=== PATIENT | female | born 1970 | race Caucasian/White ===

== ENCOUNTER → 2016-08-05 | Outpatient (CLI) | payer OTHER ==
--- NOTE | 2016-08-05 16:00 | RAD ---
Right breast ultrasound, 08/05/2016: History: Follow-up nodule A targeted ultrasound exam of the right breast was performed at the 9:00 location where a small nodule was identified on the 02/05/2016 exam. Approximately 5 cm from the nipple again noted is a small hypoechoic nodule. It measures approximately 3 x 4 x 4 mm. It has shown no significant change. No new abnormality is seen in this region. IMPRESSION: Unchanged right breast nodule as described above. Further sonographic surveillance in 6 months at the time of the patient's routine yearly mammography is suggested. BI-RADS 3-probably benign findings
== END | disposition home or self-care (01) ==
LOC: KCIC US 15:35
PROVIDERS: ATTEND Internal Medicine
DX: R92.8 Other abnormal and inconclusive findings on diagnostic imaging of breast (principal)
CPT/HCPCS: 76641

== ENCOUNTER → 2018-02-03 | Outpatient (CLI) | payer OTHER ==
--- NOTE | 2018-02-03 08:43 | KCIC ---
Bilateral digital screening mammograms: Reason for examination: Routine screening. Comparison is made to previous studies dated 01/22/2016 and 02/01/2013. Interpretation was made with the benefit of CAD. The skin and nipples show no abnormalities. No abnormal axillary lymph nodes are seen. The breast parenchyma shows scattered fibroglandular density. (Breast density: Category B.) There continues to be a small 5.4 mm nodular density laterally in the right breast seen best on CC view. There are no new dominant masses, suspicious calcifications or architectural distortions. Impression: No evidence of malignancy. Recommend routine screening. BI-RADS Category 2: Benign. "Our facility is accredited by the [employer] Mammography Program." This patient's information has been entered into a reminder system for the patient to be notified with the results of her examination and a target date for the next mammogram. Electronically signed by: Lucero Gates MD (02/03/2018 8:40 AM) [id number]
== END | disposition home or self-care (01) ==
LOC: KCIC MAMMO 07:54
PROVIDERS: ATTEND Internal Medicine
DX: Z12.31 Encounter for screening mammogram for malignant neoplasm of breast (principal)
CPT/HCPCS: 77067

== ENCOUNTER → 2018-06-30 | Outpatient (CLI) | payer OTHER ==
--- NOTE | 2018-06-30 10:27 | KCIC ---
Indication:Pelvic pain, heavy periods TECHNIQUE: Grayscale, color Doppler and spectral waveform images of the pelvis obtained. COMPARISON: None FINDINGS: The uterus is anteverted and measures 11.0 x 4.9 x 6.1 cm (longitudinal, AP, transverse). Endometrial stripe measures 1.2 cm in thickness without vascularity. Multiple nabothian cysts are seen. Small amount of fluid is seen in the endocervical canal, nonspecific. There is a mixed echogenicity round mass in the anterior aspect of the uterine body measuring 2.6 x 2.6 x 2.6 cm most likely a fibroid. The right ovary measures 2.8 x 3.0 x 1.5 cm and shows evidence of blood flow with a 1.9 x 1.6 x 1.2 cm anechoic lesion most likely dominant follicle. The left ovary measures 4.8 x 2.2 x 4.6 cm and shows evidence of blood flow. There is a 4.3 x 4.2 x 2.5 cm septated lesion in the right ovary with layering low-level echogenic debris. IMPRESSION: 1. Fibroid uterus. 2. Complex left ovarian cystic lesion likely hemorrhagic cyst. Follow-up ultrasound in 8-12 weeks recommended. Electronically signed by: Eddie Anguiano DO (06/30/2018 10:24 AM) [facility]
--- NOTE | 2018-06-30 10:48 | KCIC ---
Indication:Abdominal pain TECHNIQUE: Grayscale, color Doppler and spectral waveform is of the abdomen obtained. COMPARISON:None FINDINGS: Visualized pancreas is within normal limits. Pancreatic tail not visualized due to overlying bowel gas. IVC is within normal limits. Liver measures 14 cm in longest dimension and is normal in size with diffuse increased echogenicity. Main portal vein is patent with hepatopedal flow. CBD measures 4 mm in diameter and is within normal limits. Mid and distal aortic segments are not visualized due to overlying bowel gas. No gallstones, pericholecystic fluid or gallbladder wall thickening. Right kidney measures 11.5 cm in length without hydronephrosis. 5.0 x 3.9 x 4.6 cm simple cyst is seen in the right kidney. Spleen measures 10.3 cm in length and is normal in size. Left kidney measures 13.7 cm in length without hydronephrosis. IMPRESSION: 1. Hepatic steatosis. 2. No cholelithiasis or sonographic evidence of acute cholecystitis. Electronically signed by: Eddie Anguiano DO (06/30/2018 10:45 AM) [facility]
== END | disposition home or self-care (01) ==
LOC: KCIC US 08:01
PROVIDERS: ATTEND Internal Medicine
DX: D25.9 Leiomyoma of uterus, unspecified (principal); K76.0 Fatty (change of) liver, not elsewhere classified; N83.8 Other noninflammatory disorders of ovary, fallopian tube and broad ligament
CPT/HCPCS: 76700; 76830; 76856

== ENCOUNTER → 2019-02-23 | Outpatient (CLI) | payer OTHER ==
--- NOTE | 2019-02-23 08:58 | KCIC ---
Bilateral digital screening mammograms: Reason for examination: Routine screening. Comparison is made to previous studies dated 02/03/2018 and 01/22/2016. Interpretation was made with the benefit of CAD. The skin and nipples show no abnormalities. No abnormal axillary lymph nodes are seen. The breast parenchyma shows scattered fibroglandular density. (Breast density: Category B.) There is a small parenchymal density present in the lateral left breast on cc view probably at the 2:00 B position. Recommend further evaluation with coned compression views and ultrasound. There are no other dominant masses, suspicious calcifications or architectural distortions. Impression: Small nodular parenchymal density at the 2:00 B position of the left breast. Recommend further evaluation with coned compression views and ultrasound. BI-RADS Category 0: Incomplete. Needs additional imaging evaluation. "Our facility is accredited by the [employer] Mammography Program." This patient's information has been entered into a reminder system for the patient to be notified with the results of her examination and a target date for the next mammogram. Electronically signed by: Lucero Gates MD (02/23/2019 8:55 AM) [id number]
== END | disposition home or self-care (01) ==
LOC: KCIC MAMMO 07:56
PROVIDERS: ATTEND Internal Medicine
DX: Z12.31 Encounter for screening mammogram for malignant neoplasm of breast (principal)
CPT/HCPCS: 77067

== ENCOUNTER → 2019-03-22 | Outpatient (CLI) | payer OTHER ==
--- NOTE | 2019-03-22 09:57 | KCIC ---
Left breast diagnostic digital mammograms: Reason for examination: Abnormality on mammographic screening. Comparison is made to previous examination dated 02/23/2019. Coned compression views were obtained in CC and oblique projections. Small nodular density appears persistent the 2:00 B position. No associated calcifications are seen. Further evaluation with ultrasound will follow. IMPRESSION: Small nodular density persists at the 2:00 B position. Ultrasound to follow. BI-RADS Category 0: Incomplete. Needs additional imaging evaluation. Left breast ultrasound: Ultrasound examination of the left breast and axilla was performed. At the 2:00 position 7.5 cm posterior to the nipple, there is a 5.3 mm hypoechoic lesion just circumscribed and lies in parallel orientation has a fibrocystic/fibroadenomatous appearance. No other cystic or solid nodules are seen. No abnormal appearing lymph nodes are seen in the axilla. IMPRESSION: Small 5.3 mm fibrocystic/fibroadenomatous nodule. Recommend 6 month follow-up with ultrasound. BI-RADS Category 3: Probably Benign. "Our facility is accredited by the [employer] Mammography [employer]." This patient's information has been entered into a reminder system for the patient to be notified with the results of her examination and a target date for the next mammogram. Electronically signed by: Lucero Gates MD (03/22/2019 9:54 AM) [id number]
--- NOTE | 2019-03-22 09:57 | KCIC ---
Left breast diagnostic digital mammograms: Reason for examination: Abnormality on mammographic screening. Comparison is made to previous examination dated 02/23/2019. Coned compression views were obtained in CC and oblique projections. Small nodular density appears persistent the 2:00 B position. No associated calcifications are seen. Further evaluation with ultrasound will follow. IMPRESSION: Small nodular density persists at the 2:00 B position. Ultrasound to follow. BI-RADS Category 0: Incomplete. Needs additional imaging evaluation. Left breast ultrasound: Ultrasound examination of the left breast and axilla was performed. At the 2:00 position 7.5 cm posterior to the nipple, there is a 5.3 mm hypoechoic lesion just circumscribed and lies in parallel orientation has a fibrocystic/fibroadenomatous appearance. No other cystic or solid nodules are seen. No abnormal appearing lymph nodes are seen in the axilla. IMPRESSION: Small 5.3 mm fibrocystic/fibroadenomatous nodule. Recommend 6 month follow-up with ultrasound. BI-RADS Category 3: Probably Benign. "Our facility is accredited by the [employer] Mammography [employer]." This patient's information has been entered into a reminder system for the patient to be notified with the results of her examination and a target date for the next mammogram. Electronically signed by: Lucero Gates MD (03/22/2019 9:54 AM) [id number]
== END | disposition home or self-care (01) ==
LOC: KCIC MAMMO 08:54
PROVIDERS: ATTEND Internal Medicine
DX: N63.21 Unspecified lump in the left breast, upper outer quadrant (principal)
CPT/HCPCS: 76641; 77065